=== PATIENT | female | born 1995 | race Caucasian/White ===

== ENCOUNTER 2018-06-28 11:21 | Emergency (ER) | payer MEDICAID, SELFPAY ==
[2018-06-28 11:22] VITALS: BP 144/77; PULSE 78; RESP 16; TEMP 36.4; O2SAT 98; BMI 32.1
--- NOTE | 2018-06-28 11:40 | ED.VISSUMM ---
- ER Visit Summary Date of Service: 06/28/18 Chief Complaint: IUD is falling out. History of Present Illness: The patient is a 22 F who recently located for [place]. She states her IUD is falling out. She denies fever, chills night sweats. She denies abdominal pain, nausea, vomiting or diarrhea. She denies any dysuria, frequency, urgency hematuria. She denies vaginal discharge or vaginal bleeding. She has no other complaints. Physical Examination: Vital signs were noted and blood pressure is elevated 1 4471. She states she is nervous. HEENT is unremarkable. Heart is regular without murmur, gallop or rub. S1 and S2 are normal. Lungs are clear to auscultation with good movement of air bilaterally. Abdomen is soft nontender. Bowel sounds are present normal. There is no inguinal hernia or inguinal lymphadenopathy. External genitalia normal. Vaginal cervical mucosa is normal. The IUD string is broken. There is not a loop. Attempt to remove IUD was unsuccessful. The one string broke. Test Results: None Emergency Department Course and Treatment: Attempt to remove IUD was unsuccessful. [facility] and also given Dr. Rosy Kruger's information since she is on for no doc. Treatment Plan: Outpatient gynecology referral Disposition: Discharged home with sister Impression: 1. Screening medical exam 2. Desire to have IUD removed This note was generated with [employer] dictation software. It may contain incorrect words, spelling, and punctuation that were not noted in review of the chart prior to signing ED Disposition - Plan for ED Patient: Disposition: Home or Assisted Living Chief Complaint: Female C/O Instructions: Control: IUD (Intrauterine Device) Referrals: NOT,JANET [Primary Care Provider] - Camryn Pratt [NON-STAFF] - 5-7 Days Kim Aviles MD [STAFF PHYSICIAN] - 1 Week
== END 2018-06-28 12:03 | disposition home or self-care (01) ==
LOC: ED 12:00
PROVIDERS: Emergency Provider Emergency Medicine
DX: T83.32XA Displacement of intrauterine contraceptive device, initial encounter (principal); R03.0 Elevated blood-pressure reading, without diagnosis of hypertension; Z87.891 Personal history of nicotine dependence
CPT/HCPCS: 99282

== ENCOUNTER 2018-08-21 11:58 | Day surgery (SDC) | payer MEDICAID, SELFPAY ==
[2018-08-21] VITALS (8 sets, daily range): BP systolic 92–123; BP diastolic 55–90; PULSE 65–87; RESP 16; TEMP 36.3–36.6; O2SAT 97–100; BMI 32.9
--- NOTE | 2018-08-21 06:00 | EKG12_ITS ---
Test Reason : PRE OP Blood Pressure : / mmHG Vent. Rate : 081 BPM Atrial Rate : 081 BPM P-R Int : 152 ms QRS Dur : 088 ms QT Int : 400 ms P-R-T Axes : 037 039 034 degrees QTc Int : 464 ms Normal sinus rhythm Normal ECG No previous ECGs available Confirmed by MELVIN FREEDMAN, HELIO ([id number]), science editor DELL SMITH ([id number] on 08/27/2018 11:11:33 AM Referred By: Nikkie Delarosa Confirmed By:HELIO CHARLES MD
[2018-08-21 12:26] LABS: Internal QC Validated? YES +Cl - CLEAR BKGD; Pregnancy, Urine Negative Negative
[2018-08-21 12:34] LABS: Hematocrit 39.5 % (37-47); Hemoglobin 12.9 g/dl (12.0-15.0); Mean Corp Hgb Conc 32.7 g/gl (32-36); Mean Corpuscular Volume 85.9 fL (81-99); Mean Platelet Vol. 10.4 fl (6.2-12.0); Platelet Count 355 K/mm3 (150-450); RBC Distribution Width CV 13.1 % (11.6-14.6); RBC Distribution Width SD 41.5 fl (35.1-43.9); White Blood Count 11.1 K/mm3 (4.4-11.0)
[2018-08-21 12:35] LABS: Scan Indicated on CBC? Y/N NO
--- NOTE | 2018-08-21 14:22 | DCINST_ITS ---
- Discharge Diagnoses Current Active Problems: Malpositioned and retained IUD You will use the following diet at home:: No restrictions Discharge Activity: Return to Normal Activity, May Shower May resume sexual activity in: 1-2 weeks Weight Bearing Status: Full weight bearing Lifting Restrictions: None Call your doctor if you observe: Fever of 101 or Higher, Inability to urinate, Inability to have a bowel movement, Using more than one pad per hour, Shortness of breath, Chest pain, Calf discomfort, Uncontrolled pain Additional Instructions: Take Tylenol and Motrin as needed for the pain Allergies/Adverse Reactions: Allergies No Known Allergies Allergy (Verified 08/20/18 08:51) Medications to take at Discharge NK 06/28/18 Primary Care Physician: Ari Collins MD [Primary Care Provider] - Test Results: Test results from this visit will be discussed in further detail at your follow- up appointment, if applicable. Please Follow Up With: Nikkie Delarosa DO When: 1-2 weeks
--- NOTE | 2018-08-21 14:22 | PCM.OPRPT ---
Problem List (1) IUD (intrauterine device) in place Status: Acute (2) Malpositioned intrauterine device (IUD) Status: Acute Report of Operation Date of Procedure: 08/21/18 Pre-Operative Diagnosis: Retained and malpositioned IUD Post-Operative Diagnosis: As above Surgery/Procedure Performed:: Hysteroscopic removal of IUD Description of Surgical Findings:: IUD present within cervical canal, and end of IUD protruding from cervical os. Bilateral arms of the IUD embedded into the cervix. Normal appearing uterine cavity and bilateral tubal ostia. The wing of the IUD on the patient's right side was unable to be removed. Type of Anesthesia:: MAC Specimen's removed: End of the IUD and the wing on the patient's left side Estimated Blood Loss (mL): < 50 cc Description of Procedure: Indications: Patient is a 22-year-old female who presented to the office with a malpositioned and retained IUD. She reports she felt the IUD was expelling, and she tried to remove the IUD herself at home. She was unable to remove the IUD herself at home and therefore went into the ER for further evaluation. In the ER her IUD was not able to be removed. [facility] as well. She was then sent to our office for referral. In the office the IUD was again unable to be removed and felt to be embedded in the cervix. Risks, benefits, and alternatives were discussed of proceeding with hysteroscopic removal of the IUD in the OR. Procedure: Patient was prepped and draped in the dorsal lithotomy position using yellowfin stirrups. MAC anesthesia was found to be adequate. A weighted speculum was placed to expose the cervix and a single-tooth tenaculum was placed on the anterior lip of the cervix. The end of the IUD, as well as IUD strings, were visualized protruding from the cervical os.The cervix was progressively dilated to be able to accommodate the hysteroscope. The hysteroscope was then advanced into the uterus, and the uterine cavity was filled with saline. The uterine cavity appeared normal, and bilateral tubal ostia were visualized. The hysteroscope was then slowly removed until the cervical canal was visualized. The IUD was present within the cervical canal and both wings were visualized to be embedded in the cervix. Under hysteroscopic guidance, a flexible grasper was used to grab the wing on the patient's left side. The wing on the patient's left side was then folded down into the cervical canal. The IUD was still unable to be removed. The hysteroscope was then removed. Ring forceps were used to grasp the end of the IUD and gentle traction was placed, until the end of the wing on the patient's left side was visualized. Polyp forceps were then used to grasp the end of the wing on the patient's left side, and with gentle traction the left wing was removed. The hysteroscope was then again gently advanced into the cervical canal and the wing on the patient's right side was visualized to still be embedded in the cervical canal. Under hysteroscopic guidance a flexible grasper was used to grasp the wing on the patient's right side and multiple attempts were made to try to remove the wing from the cervix and fold the wing down into the cervical canal. Upon attempting to remove the wing on the patient's right side, the end of the IUD was removed. The pieces of the IUD were examined and the end of the IUD, as well as the wing that was on the patient's left side, were removed. The wing on the patient's right side was not removed. The hysteroscope was then gently advanced into the cervical canal, and again under hysteroscopic guidance, the flexible graspers were used to attempt to remove the IUD wing on the patient's right side. The wing was completely embedded and was shredding, and unable to be removed. The hysteroscope was removed. Called Dr. Mcbride at this point for a second opinion, and consensus was made to leave the right wing embedded. All instruments were removed from the vagina. No bleeding was noted. Instrument counts were correct at the end of the case. The patient was taken to the recovery room in stable condition. - Complications None - Admit VTE Documentation VTE Mechan Device Prophylaxis: SCD's
== END 2018-08-21 15:48 | disposition home or self-care (01) ==
LOC: SDC 12:00 → AC 12:01
PROVIDERS: Family Provider Family Medicine; PCP Family Medicine; Referring Provider Obstetrics & Gynecology; Visit Provider Obstetrics & Gynecology
PROC: 0UDB8ZZ Extraction of Endometrium, Via Natural or Artificial Opening Endoscopic (ICD-10-PCS; CPT 58558; principal; 2018-08-21 13:05)
DX: T83.89XA Other specified complication of genitourinary prosthetic devices, implants and grafts, initial encounter (principal); Z87.891 Personal history of nicotine dependence
CPT/HCPCS: 00952; 58562; 81025; 85027; 86850; 86900; 93005; J7120